=== PATIENT | female | born 1980 | race Caucasian/White ===

== ENCOUNTER 2025-03-15 00:26 | Emergency (ER) | payer BC, SELFPAY ==
[2025-03-15 00:28] VITALS: BP 170/104
[2025-03-15 00:50] VITALS: BP 149/94
[2025-03-15 00:52] VITALS: BMI 40.3
[2025-03-15 01:15] LABS: Hematocrit 33.8 % (37.0-47.0); Hemoglobin 11.7 g/dL (12.0-16.0); Mean Corp Hgb Conc. 34.6 g/dL (33.0-37.0); Mean Corpuscular Volume 83.3 fL (81.0-99.0); Nucleated Red Blood Cells % 0 %; Platelet Count 302 10^3/uL (130-400); Red Cell Dist. Width 12.9 % (11.5-14.5)
[2025-03-15 01:32] LABS: ALT (SGPT) 17 U/L (0-35); AST (SGOT) 22 U/L (14-36); Albumin 4.8 g/dl (3.5-5.0); Alkaline Phosphatase 78 U/L (38-126); Blood Urea Nitrogen 11 mg/dl (7-17); Calcium 9.4 mg/dl (8.4-10.2); Carbon Dioxide 24 mmol/L (22-30); Chloride 106 mmol/L (98-107); Estimated Creatinine Clearance > 125 ml/min; Glucose 117 mg/dl (70-99); Potassium 3.8 mmol/L (3.5-5.1); Sodium 139 mmol/L (135-145); Total Protein 7.8 g/dl (6.3-8.2); eGFR > 60.00
[2025-03-15 02:00] VITALS: BP 129/84
[2025-03-15 02:10] LABS: Troponin I < 0.012 ng/ml
[2025-03-15 02:23] LABS: HCG, Serum Qualitative Screen Negative
[2025-03-15 02:27] LABS: D-Dimer 0.47 ug/mlFEU (0.00-0.50)
[2025-03-15] MEDS: AFRIN NASAL SPRAY 4 SPRAYS NASAL (02:53)
--- NOTE | 2025-03-15 02:53 | ED.GENMED ---
History of Present Illness
General
Chief Complaint: Breathing Problem
Source: patient
Exam Limitations: none
Time Seen by Provider: 03/15/25 00:57
Nursing documentation reviewed up to this point in time: agreed with
History of Present Illness
History of Present Illness:
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 She reports experiencing significant fatigue and generalized body aches, which she attributed to her extensive training
sessions at her new job at [employer] of 8 to 12 hours, five days a week. However, she began noticing voice hoarseness, 2 days ago which she initially thought was due to allergies or environmental exposure. The patient attended an outdoor event recently
and has been around children at [employer].
The patient also experiences disrupted sleep with gasping episodes, previous sleep study 2023 revealing obstructive sleep apnea. She has trialed CPAP without success and has not followed up with an Ear, Nose, and Throat specialist due to an
insurance change. Recently, the patient wakes gasping for air, especially distressing when she awoke feeling suffocated around 3:30 AM yesterday morning. She describes chest tightness, stating, �I could get a breath in, but I couldn't get a breath
out.�
While she has a past history of exercise-induced asthma in her early 20s, she has not used an inhaler recently. Her symptoms include a persistent cough developed yesterday and on-off vaginal bleeding over the past three weeks, leading to concerns
about potential anemia. She admits that she has not had blood work in quite some time.
1 month ago she resumed Amy and Singulair, she uses Flonase intermittently. She is chronically maintained on lisinopril, Effexor, Vyvanse. She ran out of Dexilant and has been using Nexium 40 mg as a replacement.
She did take prednisone 40 mg yesterday morning. An old prescription.
She has not had a fever.
No recent travel, no leg pain or swelling.
She has IUD in place, denies risk of but does admit to intermittent and somewhat persistent bleeding over the past 3 weeks. She denies abdominal pain.
Lifelong non-smoker.
Past History
Past History
ED Past Medical History: Asthma (Exercise-induced asthma in her 20s), GERD, HTN, Psychiatric and Other (Migraine headaches, obstructive sleep apnea, seasonal allergies)
ED Past Surgical History: Other (Sinus surgery)
Social History
Tobacco: Non-smoker
Alcohol: None
Drug: None
Personal:
Living: with family
Employment: Employed
Family History
Family History: Other (Noncontributory)
Phy Exam
Physical Exam
Physical Exam:
GENERAL: 44-year-old woman appears her stated age, awake and alert, pleasant, appears in no acute distress. Speech is clear.
EYE: anicteric
NECK: Supple, nontender, no meningismus, no significant adenopathy.
ENT: posterior pharynx is without injection, nor edema, mild pearly postnasal drip is noted. Oral mucosa is moist. TM clear b/l, nares have moderately boggy pale blue turbinates.
CARDIAC: Regular rate and rhythm. no murmur.
LUNGS: Clear breath sounds bilaterally, no acute respiratory distress, no wheezes/rales/rhonchi
ABDOMEN: Soft, nondistended, without focal tenderness
NEUROLOGICAL: Alert and oriented x3, no focal neuro deficits.
SKIN: Warm and dry, normal color, skin intact. Mild global erythema to face and upper anterior neck/chest region in V formation that appears consistent with sun exposure.
MUSCULOSKELETAL: No C/C/E. peripheral pulses are full and equal b/l. No palpable tenderness.
PSYCH: Normal and appropriate interaction.
Scores
Heart Failure Risk
Heart Failure Risk Score: Not Applicable
Sepsis
Sepsis Screening
Sepsis Assessment: Sepsis Ruled Out
Sepsis Screen
Sepsis Screen: Sepsis Ruled Out
Date: 03/15/25
Time: 07:34
Course
Orders/Labs/Results
Orders:
Orders
03/15/25 01:05
CBC/With Diff [Complete Blood Count/With Diff] Urgent
CMP [Comprehensive Metabolic Panel] Urgent
HCG, Serum Qualitative Screen Urgent
Comment: ADD ON
TSH Reflex To Free T4 Urgent
Comment: ADD ON
03/15/25 01:07
Chest [CR Chest - 2 Views ] Urgent
Comment:
Reason For Exam: SOB
03/15/25 01:19
Electrocardiogram (*1) Urgent
Reason for Study: Shortness of Breath
EKG- Treatment ONCE
DDimer [D-Dimer] Urgent
03/15/25 01:20
NT-proBNP Urgent
Comment: ADD ON
Troponin I Urgent
03/15/25 01:48
Add On- LAB Urgent
Tests Added?: TSH with reflex to T4, HCG, BNP
03/15/25 02:39
Oxymetazoline HCl [Afrin Nasal [place]] See Dose Instructions NASAL NOW STA
Abnormal Lab Results
03/15/25
01:05
RBC 4.06 L 10^6/uL
(4.20-5.40)
Hgb 11.7 L g/dL
(12.0-16.0)
Hct 33.8 L %
(37.0-47.0)
Absolute Lymphs (auto) 1.0 L 10^3/uL
(1.2-3.4)
Neutrophils % 77.1 H %
(42.2-75.2)
Lymphocytes % 16.2 L %
(20.5-51.1)
Glucose 117 H mg/dl
(70-99)
03/15/25 01:05
03/15/25 01:05
Vital Signs
Initial and Last Documented VS:
Initial Vital Signs
Temp Pulse Resp BP Pulse Ox
98.7 F 98 24 170/104 100
03/15/25 00:28 03/15/25 00:28 03/15/25 00:28 03/15/25 00:28 03/15/25 00:28
Last Documented Vital Signs
Temp Pulse Resp BP Pulse Ox
97.7 F 90 16 133/88 98
03/15/25 02:47 03/15/25 03:00 03/15/25 02:47 03/15/25 03:00 03/15/25 03:00
MDM/Problems Addressed
Differential Diagnosis Includes:
The Differential Diagnosis includes, in no particular order and is not limited to:
1. Upper respiratory tract infection
2. Viral laryngotracheitis (croup-like illness)
3. Chronic obstructive pulmonary disease exacerbation
4. Pulmonary embolism
5. Obstructive sleep apnea
6. Viral bronchitis
7. Asthma exacerbation
8. Anemia
9. Gastroesophageal reflux disease
10. Panic disorder
MDM/Problems Addressed:
Concern for hoarse voice, generalized myalgias, difficulty breathing, more so at nighttime.
Will check labs, including TSH, BNP, D-dimer, troponin, hCG.
Will check EKG as well as chest x-ray.
Chronic conditions affecting care:
Seasonal allergic rhinitis
History of exercise-induced asthma
Obstructive sleep apnea�intolerant to CPAP
Prior history of anemia related to heavy menses
Hypertension
Anxiety
*Radiology
Radiology exam reviewed: preliminary read by ED provider (Chest x-ray is unremarkable, clear lung hector, normal heart size.)
*Pulse Oximetry
SaO2: 98
Oxygen Mode of Delivery: Room air
Patient hypoxic: no
*EKG
Interpreted by ED Provider?: Yes
Interpretation: normal
Comparison EKG: no comparison EKG present
Rate: normal
Rhythm: sinus
[place]: normal axis
Interval: normal interval
QRS Pattern: normal QRS
Ischemia: no ischemia
*Critical Care Note
Total Time (30-74mins, 75-104mins- exclusive of procedures): Not Applicable
Update Note
Update Note:
03:05
Patient feeling improved after Afrin nasal spray.
She continues to have no respiratory distress. Lungs are clear to auscultation. Pulse ox 100%. Speech is clear.
Labs are all unremarkable. Normal troponin, normal D-dimer, normal BNP at 54, normal TSH. hCG is negative. Hemoglobin 11.7.
Chest x-ray is unremarkable, clear lung hector, normal heart size.
Exam remarkable for allergic rhinitis, I suspect seasonal in nature. She may have a resolving viral URI as well. Recommend continuing prednisone 40 mg daily over the next 3 to 4 days.
Continue Amy, Singulair and resume daily Flonase.
Patient may use Afrin nasal spray twice daily as needed but no longer than 3 days.
Encouraged prompt follow-up with her ENT specialist as well as PCP.
ED Attending Note
-
Portions of this chart may have been created with voice recognition software.� Occasional wrong word or��sound alike� substitutions may have occurred due to the inherent limitations of voice recognition software.
Discharge Plan
Departure
Patient Disposition: Home (Routine Discharge)
Date of Disposition: 03/15/25
Time of Disposition: 03:15
Patient with high blood pressure during this ER visit?: No
Condition: Good
Discharge Problem:
Acute seasonal allergic rhinitis
Prescriptions:
No Action
venlafaxine [Effexor XR] 150 mg Capsule,Extended Release 24hr
150 mg PO DAILY
prochlorperazine maleate [Compazine] 10 mg Tablet
10 mg PO PRN PRN (Reason: migraine)
ketorolac [Toradol] 10 mg Tablet
10 mg PO PRN PRN (Reason: migraine)
Patient Comments:
no more than 10 per month
lisinopril 10 mg Tablet
10 mg PO DAILY
promethazine [Phenergan] 25 mg Tablet
25 mg PO PRN PRN (Reason: migraine)
montelukast [Singulair] 10 mg Tablet
10 mg PO DAILY
epinephrine [Epi E-Z Pen] 0.3 mg/0.3 mL Auto-Injector
0.3 mg IM ONCE PRN (Reason: latex allergy)
ondansetron [Zofran ODT] 4 mg Tablet,Disintegrating
4 mg PO PRN PRN (Reason: nausea with migraine)
fluticasone propionate [Flonase] 50 mcg/actuation [place],Suspension
1 spray INTRANASAL DAILY
fexofenadine-pseudoephedrine [Amy-D 24 Hour] 180-240 mg Tablet Extended Release 24 Hr
1 tab PO DAILY
lisdexamfetamine [Vyvanse] 30 mg Capsule
30 mg PO DAILY
dexlansoprazole [Dexilant] 30 mg Capsule,Biphase Delayed Releas
30 mg PO DAILY
lisdexamfetamine [Vyvanse] 10 mg Capsule
10 mg PO DAILY PRN (Reason: adhd)
Vyepti 100 mg/mL Solution
300 mg IV [id number]
Nurtec ODT 75 mg Tablet,Disintegrating
75 mg PO ONCE PRN (Reason: migraine)
Referrals:
Gladys Veronica DO [Family Provider, Family Practice]
Interventions
Interventions:
*Risk Screen - Suicide Last Done: 03/15/25 00:28
*General Assessment Last Done: 03/15/25 01:30
*Neglect/Abuse Screening Last Done: 03/15/25 00:28
*ED- Fall Risk Assessment Last Done: 03/15/25 01:30
*ED COVID-19 Vaccine History Last Done: 03/15/25 01:30
*Nursing Disposition Last Done: 03/15/25 03:29
ED- Cardiac Assessment Last Done: 03/15/25 01:27
ED- Pulmonary Assessment Last Done: 03/15/25 02:54
Discharge Date and Time
Discharge Date/Time: 03/15/25 03:29
Print Language: MALTESE
[2025-03-15 03:00] VITALS: BP 133/88
== END 2025-03-15 03:29 | disposition home or self-care (01) ==
LOC: EMR 00:26
PROVIDERS: EMERGENCY PHYSICIAN Emergency Medicine; FAMILY PHYSICIAN Family Medicine
DX: J30.2 Other seasonal allergic rhinitis (principal); I10 Essential (primary) hypertension; J45.990 Exercise induced bronchospasm; G47.33 Obstructive sleep apnea (adult) (pediatric); K21.9 Gastro-esophageal reflux disease without esophagitis; F41.9 Anxiety disorder, unspecified
CPT/HCPCS: 99284; 71046; 80053; 83880; 84443; 84484; 84703; 85025; 85379; 93005